=== PATIENT | female | born 1985 | race Caucasian/White ===

== ENCOUNTER 2016-11-12 10:07 | Emergency (ER) | payer OTHER ==
--- NOTE | 2016-11-12 10:43 | ED MED RECONCILIATION SUMMARY ---
Patient: KENDRA PARIKH Medication Reconciliation Report [facility] VisitID: [id number] [address] [place] [address] 31y, F Registration Date/Time: 11/12/2016 Weight: (not available) Height/Length: (not available) BMI: (not available) ALLERGIES: The patient's Home Medications are listed below: Not obtained. The source(s) of the original Home Medication information: Not obtained. The following Medications were given to the patient in the Emergency Department: None. The following Medications were prescribed to the patient: None.
--- NOTE | 2016-11-12 10:43 | ED MAR SUMMARY ---
..... Medication Administration Record [facility] [address] [place], [place] [id number] Patient: KENDRA PARIKH Visit ID: [id number] 31y, F Weight: (not available) Height/Length: (not available) BMI: (not available) ALLERGIES:
--- NOTE | 2016-11-12 10:43 | ED NURSING NOTES ---
Clinical Report - [facility] [place] [address] 11/12/2016 10:07 Patient: KENDRA PARIKH TRIAGE Triage time 10:20. --10:42 Kary Rabago R.N. DISPOSITION / DISCHARGE 10:24 11/12/16. The patient left the Emergency Department before triage. The patient appears to be alert, oriented x4, coherent and in no acute distress. She notified the ED staff prior to leaving the department and stated is leaving the ED due to personal reasons (pt stated she took "aspirin" before she got here and it helped "the headache", she thinks she is just going to go home and put a cloth on her head for now and if she ssstill feels bad in an hour, she will come back). Notified the ED physician of patient departure. Prior to leaving the ED, she was advised to return if needed. She left the Emergency Department ambulatory. ( with friend). --10:24 Kary Rabago R.N. Departure time: 1024. --10:42 Kary Rabago R.N. Locked/Released at 11/12/2016 10:42 by Kary Rabago R.N.
--- NOTE | 2016-11-12 10:43 | ED NURSING NOTES ---
Clinical Report - [facility] [place] [address] 11/12/2016 10:07 Patient: KENDRA PARIKH TRIAGE Triage time 10:20. --10:42 Kary Rabago R.N. DISPOSITION / DISCHARGE 10:24 11/12/16. The patient left the Emergency Department before triage. The patient appears to be alert, oriented x4, coherent and in no acute distress. She notified the ED staff prior to leaving the department and stated is leaving the ED due to personal reasons (pt stated she took "aspirin" before she got here and it helped "the headache", she thinks she is just going to go home and put a cloth on her head for now and if she ssstill feels bad in an hour, she will come back). Notified the ED physician of patient departure. Prior to leaving the ED, she was advised to return if needed. She left the Emergency Department ambulatory. ( with friend). --10:24 Kary Rabago R.N. Departure time: 1024. --10:42 Kary Rabago R.N. Locked/Released at 11/12/2016 10:42 by Kary Rabago R.N.
--- NOTE | 2016-11-12 10:43 | ED MAR SUMMARY ---
..... Medication Administration Record [facility] [address] [place], [place] [id number] Patient: KENDRA PARIKH Visit ID: [id number] 31y, F Weight: (not available) Height/Length: (not available) BMI: (not available) ALLERGIES:
--- NOTE | 2016-11-12 10:43 | ED MED RECONCILIATION SUMMARY ---
Patient: KENDRA PARIKH Medication Reconciliation Report [facility] VisitID: [id number] [address] [place] [address] 31y, F Registration Date/Time: 11/12/2016 Weight: (not available) Height/Length: (not available) BMI: (not available) ALLERGIES: The patient's Home Medications are listed below: Not obtained. The source(s) of the original Home Medication information: Not obtained. The following Medications were given to the patient in the Emergency Department: None. The following Medications were prescribed to the patient: None.
== END 2016-11-12 10:24 | disposition left against medical advice (07) ==
LOC: ED SRH 10:07
DX: Z53.21 Procedure and treatment not carried out due to patient leaving prior to being seen by health care provider (principal)